=== PATIENT | male | born 1970 | race African-American/Black ===

== ENCOUNTER 2018-05-29 17:45 | Emergency (ER) | payer MEDICAID ==
[~2018-05-29] VITALS: Ht 182.9 cm; Wt 181.0 kg
[~2018-05-29 17:45] MED LIST: ATOR10TA PO; FURO-152 PO; LISI2.5T47 PO
[2018-05-29] MEDS ORDERED: CLOP75TA16 PO (17:52)
[2018-05-29] MEDS ORDERED: ASPI-1159 PO (17:52)
[2018-05-29] MEDS ORDERED: COR3 PO (17:52)
[2018-05-29] MEDS ORDERED: SODIUM CHLORIDE 0.9% 1,000 ML IV ONE (19:06)
[2018-05-29] MEDS ORDERED: BACITRACIN ZINC OINT UDPKT TOP ONE (19:15)
[2018-05-29] MEDS ORDERED: ALBUTEROL (0.083%) 2.5MG/3ML NEB HHN STA (19:18)
[2018-05-29] MEDS ORDERED: IPRATROPIUM BROMIDE (0.02%) 0.5MG/2.5ML NEB HHN STA (19:18)
[2018-05-29] MEDS ORDERED: METHYLPREDNISOLONE SOD SUCC 125 MG/2 ML VIAL IV STA (19:18)
[2018-05-29 19:38] LABS: BASOPHILS % 0.6 % (0.0-2.0); EOSINOPHILS % 0.9 % (0.0-5.0); HEMATOCRIT. 40.2 % (42.0-52.0); HEMOGLOBIN. 13.3 g/dL (14.0-18.0); LYMPHOCYTES % 8.2 % (20.0-50.0); MEAN CORPUSCULAR HEMOGLOBIN 27.6 pg (28.0-32.0); MEAN CORPUSCULAR VOLUME 83.4 fL (80.0-94.0); MEAN PLATELET VOLUME 7.5 fl (7.4-10.4); MONOCYTES % 8.4 % (2.0-8.0); NEUTROPHILS % 81.9 % (40.0-76.0); PLATELET 292 x1000/uL (130-400); RED BLOOD CELL COUNT 4.82 mill/uL (4.7-6.1); RED CELL DISTRIBUTION WIDTH 15.4 % (11.6-14.6)
[2018-05-29 19:42] LABS: CHLORIDE 106 mEq/L (98-107)
[2018-05-29 19:51] LABS: CREATINE KINASE 236 IU/L (39-308)
[2018-05-30] MEDS ORDERED: ONDANSETRON HCL 4MG/2ML VIAL IV PRN (00:15)
[2018-05-30] MEDS ORDERED: ACETAMINOPHEN 325MG TABLET PO PRN (00:15)
[2018-05-30] MEDS ORDERED: CLONIDINE 0.1MG TABLET PO PRN (00:15)
[2018-05-30] MEDS ORDERED: LORAZEPAM 2MG/ML CPJ IV PRN (00:15)
[2018-05-30] MEDS ORDERED: LEVOFLOXACIN 500MG PREMIX 100 ML IV SCH (00:15)
[2018-05-30] MEDS ORDERED: DEXT 5%/0.45% NACL 1000ML 1,000 ML IV SCH (00:15)
[2018-05-30 00:38] VITALS: BP 169/102
[2018-05-30] MEDS ORDERED: METHYLPREDNISOLONE SOD SUCC 125 MG/2 ML VIAL IV SCH (06:00)
== END 2018-05-30 00:35 | disposition left against medical advice (07) ==
LOC: ER 17:45 → ENRESERV 23:45 → ER 05-30 00:35 → CANBEDREQ 05-30 04:30
DX: R55 Syncope and collapse (principal); I11.0 Hypertensive heart disease with heart failure; I50.9 Heart failure, unspecified; J44.9 Chronic obstructive pulmonary disease, unspecified; E78.00 Pure hypercholesterolemia, unspecified; Z79.82 Long term (current) use of aspirin; Z79.899 Other long term (current) drug therapy
CPT/HCPCS: 36415; 70450; 71045; 73560; 80053; 82550; 84484; 85025; 93005; 94640; 96361; 96374; 99285; J2930; J7030; J7611; Z7610

== ENCOUNTER 2019-01-01 13:04 | Inpatient (IN) | payer MEDICAID ==
[~2019-01-01] VITALS: Ht 182.9 cm; Wt 186.0 kg
[~2019-01-01 13:04] MED LIST changes: +AMLO5TAB88 PO; +ASPI-1159 PO; +CLOP75TA16 PO; +COR6 PO; +FURO-151 PO; -FURO-152 PO; +HYDR-4135 PO; +LISI-604 PO; -LISI2.5T47 PO
[2019-01-01 14:51] LABS: BASOPHILS % 0.5 % (0.0-2.0); EOSINOPHILS % 1.5 % (0.0-5.0); HEMATOCRIT. 42.4 % (42.0-52.0); HEMOGLOBIN. 13.9 g/dL (14.0-18.0); LYMPHOCYTES % 13.2 % (20.0-50.0); MEAN CORPUSCULAR HEMOGLOBIN 27.9 pg (28.0-32.0); MEAN PLATELET VOLUME 7.9 fl (7.4-10.4); MONOCYTES % 9.3 % (2.0-8.0); NEUTROPHILS % 75.5 % (40.0-76.0); PLATELET 302 x1000/uL (130-400); RED BLOOD CELL COUNT 4.99 mill/uL (4.7-6.1); RED CELL DISTRIBUTION WIDTH 14.6 % (11.6-14.6)
[2019-01-01 14:55] LABS: BG BASE EXCESS 2.7 mmol/L (-2.0-2.0); BG BILEVEL POS AIRWAY PRESSURE 15/5; BG CARBOXYHEMOGLOBIN 2.2 % (0.5-1.5); BG DEOXYHEMOGLOBIN 0.8 % (0.0-5.0); BG FRACTION INSPIRED OXYGEN 50; BG HCO3 ACT 30.1 mmol/L (22.0-26.0); BG METHEMOGLOBIN 0.2 % (0.0-1.5); BG OXYGEN SATURATION 99.2 % (92.0-98.5); BG OXYHEMOGLOBIN 96.8 % (94.0-97.0); BG PCO2 58.3 mmHg (35.0-45.0); BG PH 7.331 (7.350-7.450); BG PO2 202.9 mmHg (75.0-100.0); BG SAMPLE SITE RIGHT RADIAL; BG TOTAL HEMOGLOBIN 14.6 g/dL (12.0-18.0); BG VENT MODE MASK - BIPAP
[2019-01-01 14:58] LABS: CHLORIDE 108 mEq/L (98-107)
[2019-01-01 15:00] LABS: PROTHROMBIN TIME 10.4 sec (9.1-11.1)
[2019-01-01] MEDS ORDERED: FUROSEMIDE 40MG/4ML VIAL IVP ONE (15:00)
[2019-01-01] MEDS ORDERED: CLINDAMYCIN 600 MG in DEXTROSE 5% WATER 50 ML IV ONE (15:45)
[2019-01-01] MEDS ORDERED: LIDOCAINE HCL/EPINEPHRINE 1%-EPI 1:100,000 30 ML VIAL INFIL ONE (15:45)
[2019-01-01] MEDS ORDERED: NA PHOS,M-B/NA PHOS,DI-BA ENEMA 118ML PR PRN (16:30)
[2019-01-01] MEDS ORDERED: DIPHENHYDRAMINE 50MG/ML VIAL IV PRN (16:30)
[2019-01-01] MEDS ORDERED: ONDANSETRON HCL 4MG/2ML INJ IV PRN (16:30)
[2019-01-01] MEDS ORDERED: MAGNESIUM/ALUMINUM HYDROXIDE/SIMETHICONE 30ML UDC PO PRN (16:30)
[2019-01-01] MEDS ORDERED: ACETAMINOPHEN 650MG/20.3ML UDC GT PRN (16:30)
[2019-01-01] MEDS ORDERED: ACETAMINOPHEN 325MG TABLET PO PRN (16:30)
[2019-01-01] MEDS ORDERED: DOCUSATE SODIUM 100MG CAPSULE PO PRN (16:30)
[2019-01-01] MEDS ORDERED: ACETAMINOPHEN 650MG SUPP PR PRN (16:30)
[2019-01-01] MEDS ORDERED: LIDOCAINE HCL/EPINEPHRINE 1%-EPI 1:100,000 20 ML VIAL INFIL ONE (16:30)
[2019-01-01] MEDS ORDERED: GUAIFENESIN 200MG/10ML SUGAR FREE UDC PO PRN (16:30)
[2019-01-01] MEDS ORDERED: MORPHINE SULFATE 4 MG/ML CPJ (NOT FOR IM USE) IV ONE (16:45)
[2019-01-01 18:34] VITALS: BP 105/71
[2019-01-01 18:52] VITALS: BP 105/71
[2019-01-01 20:00] VITALS: BP 110/77
[2019-01-01] MEDS: HYDROCODONE/ACETAMINOPHEN 10/325MG TABLET PO PRN (20:22)
[2019-01-01] MEDS: SODIUM CHLORIDE 0.9% INJ 3ML FLUSH IVF SCH (21:36)
[2019-01-01] MEDS: ENOXAPARIN 40MG/0.4ML SYR SUBCUT SCH (21:36)
[2019-01-01] MEDS: HYDROCODONE/ACETAMINOPHEN 5/325MG TABLET PO PRN (21:43)
[2019-01-01 22:00] VITALS: BP 108/70
[2019-01-01 23:41] LABS: CREATINE KINASE 130 IU/L (39-308)
[2019-01-01 23:42] LABS: CREATINE KINASE MB FRACTION 1.8 ng/mL (0.5-3.6)
[2019-01-02] VITALS (12 sets, daily range): BP systolic 95–168; BP diastolic 52–106
[2019-01-02] MEDS: HYDROCODONE/ACETAMINOPHEN 10/325MG TABLET PO PRN ×5 (03:19→22:28)
[2019-01-02] MEDS: SODIUM CHLORIDE 0.9% INJ 3ML FLUSH IVF SCH ×3 (06:17→21:18)
[2019-01-02 07:17] LABS: CHLORIDE 104 mEq/L (98-107)
[2019-01-02 07:19] LABS: BASOPHILS % 0.4 % (0.0-2.0); EOSINOPHILS % 2.2 % (0.0-5.0); HEMATOCRIT. 42.5 % (42.0-52.0); HEMOGLOBIN. 13.8 g/dL (14.0-18.0); MEAN CORPUSCULAR VOLUME 86.1 fL (80.0-94.0); MEAN PLATELET VOLUME 8.2 fl (7.4-10.4); MONOCYTES % 10.7 % (2.0-8.0); NEUTROPHILS % 72.7 % (40.0-76.0); PLATELET 305 x1000/uL (130-400); RED BLOOD CELL COUNT 4.93 mill/uL (4.7-6.1); RED CELL DISTRIBUTION WIDTH 14.5 % (11.6-14.6)
[2019-01-02 07:31] LABS: HDL CHOLESTEROL 37 mg/dL (40-59)
[2019-01-02 07:33] LABS: CREATINE KINASE 109 IU/L (39-308)
[2019-01-02 07:34] LABS: LDL CHOLESTEROL 125 mg/dL (5-100)
[2019-01-02 07:36] LABS: CREATINE KINASE MB FRACTION 1.3 ng/mL (0.5-3.6)
[2019-01-02] MEDS: FUROSEMIDE 40MG/4ML VIAL IV SCH ×2 (08:13→17:53)
[2019-01-02] MEDS: ENOXAPARIN 40MG/0.4ML SYR SUBCUT SCH ×2 (08:13→21:18)
[2019-01-02 10:16] LABS: T4 FREE 0.95 ng/dL (0.76-1.46)
[2019-01-02] MEDS: CLONIDINE 0.1MG TABLET PO PRN (14:24)
[2019-01-02] MEDS: IPRATROPIUM/ALBUTEROL 0.5-3(2.5)MG/3ML NEB INH PRN (19:47)
[2019-01-02 20:48] LABS: CREATINE KINASE 103 IU/L (39-308)
[2019-01-02 20:49] LABS: CREATINE KINASE MB FRACTION 1.2 ng/mL (0.5-3.6)
[2019-01-03] VITALS (11 sets, daily range): BP systolic 101–160; BP diastolic 56–103
[2019-01-03] MEDS: IPRATROPIUM/ALBUTEROL 0.5-3(2.5)MG/3ML NEB INH PRN ×3 (00:32→20:26)
[2019-01-03] MEDS: HYDROCODONE/ACETAMINOPHEN 10/325MG TABLET PO PRN ×5 (05:51→23:50)
[2019-01-03] MEDS: SODIUM CHLORIDE 0.9% INJ 3ML FLUSH IVF SCH ×3 (05:54→22:49)
[2019-01-03] MEDS: FUROSEMIDE 40MG/4ML VIAL IV SCH ×2 (06:53→17:51)
[2019-01-03 07:56] LABS: CREATINE KINASE 77 IU/L (39-308); CREATINE KINASE MB FRACTION < 1.0 ng/mL (0.5-3.6)
[2019-01-03] MEDS: ENOXAPARIN 40MG/0.4ML SYR SUBCUT SCH ×2 (10:00→22:48)
[2019-01-03] MEDS: CLONIDINE 0.1MG TABLET PO PRN (10:01)
[2019-01-03 21:01] LABS: BASOPHILS % 0.7 % (0.0-2.0); CHLORIDE 97 mEq/L (98-107); EOSINOPHILS % 2.1 % (0.0-5.0); HEMATOCRIT. 42.2 % (42.0-52.0); HEMOGLOBIN. 13.7 g/dL (14.0-18.0); LYMPHOCYTES % 16.9 % (20.0-50.0); MEAN CORPUSCULAR HEMOGLOBIN 27.9 pg (28.0-32.0); MEAN CORPUSCULAR VOLUME 86.1 fL (80.0-94.0); MEAN PLATELET VOLUME 8.1 fl (7.4-10.4); MONOCYTES % 9.2 % (2.0-8.0); NEUTROPHILS % 71.1 % (40.0-76.0); PLATELET 287 x1000/uL (130-400); RED CELL DISTRIBUTION WIDTH 14.2 % (11.6-14.6)
[2019-01-04] VITALS: BP 150/99
[2019-01-04 04:00] VITALS: BP 139/83
[2019-01-04] MEDS: SODIUM CHLORIDE 0.9% INJ 3ML FLUSH IVF SCH ×3 (06:56→22:26)
[2019-01-04] MEDS: ENOXAPARIN 40MG/0.4ML SYR SUBCUT SCH ×2 (09:04→20:12)
[2019-01-04] MEDS: HYDROCODONE/ACETAMINOPHEN 5/325MG TABLET PO PRN ×2 (09:05→13:27)
[2019-01-04] MEDS: FUROSEMIDE 40MG/4ML VIAL IV SCH ×2 (09:05→17:40)
[2019-01-04] MEDS: CLOPIDOGREL 75MG TABLET PO SCH (09:07)
[2019-01-04 10:01] LABS: BASOPHILS % 0.3 % (0.0-2.0); EOSINOPHILS % 2.4 % (0.0-5.0); HEMATOCRIT. 41.6 % (42.0-52.0); HEMOGLOBIN. 13.6 g/dL (14.0-18.0); LYMPHOCYTES % 16.2 % (20.0-50.0); MEAN CORPUSCULAR HEMOGLOBIN 28.3 pg (28.0-32.0); MEAN CORPUSCULAR VOLUME 86.6 fL (80.0-94.0); MEAN PLATELET VOLUME 7.7 fl (7.4-10.4); NEUTROPHILS % 72.1 % (40.0-76.0); PLATELET 272 x1000/uL (130-400); RED BLOOD CELL COUNT 4.81 mill/uL (4.7-6.1); RED CELL DISTRIBUTION WIDTH 14.1 % (11.6-14.6)
[2019-01-04 10:05] LABS: CHLORIDE 99 mEq/L (98-107)
[2019-01-04 12:00] VITALS: BP 146/88
[2019-01-04 16:00] VITALS: BP 127/96
[2019-01-04] MEDS ORDERED: CEPHALEXIN 250 MG/5 ML 100ML PO SCH (19:00)
[2019-01-04 20:00] VITALS: BP 144/88
[2019-01-04] MEDS: CEPHALEXIN 250MG CAPSULE PO SCH (20:07)
[2019-01-04] MEDS: HYDROCODONE/ACETAMINOPHEN 10/325MG TABLET PO PRN (20:12)
[2019-01-05] VITALS: BP 132/89
[2019-01-05 04:00] VITALS: BP 132/89
[2019-01-05] MEDS: SODIUM CHLORIDE 0.9% INJ 3ML FLUSH IVF SCH (06:12)
[2019-01-05] MEDS: FUROSEMIDE 40MG/4ML VIAL IV SCH (06:23)
[2019-01-05] MEDS: HYDROCODONE/ACETAMINOPHEN 5/325MG TABLET PO PRN (06:28)
[2019-01-05 08:00] VITALS: BP 115/80
[2019-01-05] MEDS: CEPHALEXIN 250MG CAPSULE PO SCH (09:03)
[2019-01-05] MEDS: CLOPIDOGREL 75MG TABLET PO SCH (09:03)
[2019-01-05] MEDS: HYDROCODONE/ACETAMINOPHEN 10/325MG TABLET PO PRN (09:04)
[2019-01-05] MEDS: ENOXAPARIN 40MG/0.4ML SYR SUBCUT SCH (09:04)
[2019-01-05] MEDS ORDERED: FURO-151 PO (11:58)
[2019-01-05 12:00] VITALS: BP 124/78
[2019-01-05 12:48] VITALS: BP 124/78
== END 2019-01-05 16:32 | disposition home or self-care (01) | DRG 133 ==
LOC: ER 13:04 → 5EST 15:55 → EDBEDREQSVC 16:06 → EDBEDREQ 16:06 → ENRESERV 16:39 → CANRESERV 16:39 → EDBEDREQSVC 16:48 → ENRESERV 16:53 → EDBEDREQSVC 16:55 → 6EST 01-03 21:15
PROVIDERS: ADMIT Family Medicine; ATTEND Family Medicine
PROC: 0H96XZZ Drainage of Back Skin, External Approach (ICD-10-PCS; principal; 2019-01-01)
PROC: 5A09357 Assistance with Respiratory Ventilation, Less than 24 Consecutive Hours, Continuous Positive Airway Pressure (ICD-10-PCS; 2019-01-01)
PROC: 5A09357 Assistance with Respiratory Ventilation, Less than 24 Consecutive Hours, Continuous Positive Airway Pressure (ICD-10-PCS; 2019-01-02)
PROC: 5A09357 Assistance with Respiratory Ventilation, Less than 24 Consecutive Hours, Continuous Positive Airway Pressure (ICD-10-PCS; 2019-01-04)
DX: J96.21 Acute and chronic respiratory failure with hypoxia (principal); I50.33 Acute on chronic diastolic (congestive) heart failure; E44.1 Mild protein-calorie malnutrition; E66.01 Morbid (severe) obesity due to excess calories; I11.0 Hypertensive heart disease with heart failure; E78.5 Hyperlipidemia, unspecified; I25.10 Atherosclerotic heart disease of native coronary artery without angina pectoris; L02.212 Cutaneous abscess of back [any part, except buttock and flank]; F17.200 Nicotine dependence, unspecified, uncomplicated; G47.33 Obstructive sleep apnea (adult) (pediatric); J44.9 Chronic obstructive pulmonary disease, unspecified; Z82.49 Family history of ischemic heart disease and other diseases of the circulatory system; Z83.3 Family history of diabetes mellitus; Z95.5 Presence of coronary angioplasty implant and graft; Z68.43 Body mass index [BMI] 50.0-59.9, adult; Z79.899 Other long term (current) drug therapy; Z79.82 Long term (current) use of aspirin
CPT/HCPCS: 36415; 36600; 71045; 78580; 80061; 82375; 82550; 82553; 82805; 83036; 83880; 84134; 84439; 84443; 84484; 85379; 93005; 93306; 93970; 94660; 96365; 97162; 99285; J1200; J1650; J1940; J2270; J2405; J3490; J7060; J7620

== ENCOUNTER 2019-03-23 14:04 | Inpatient (IN) | payer MEDICAID ==
[~2019-03-23] VITALS: Ht 182.9 cm; Wt 181.9 kg
[~2019-03-23 14:04] MED LIST changes: -AMLO5TAB88 PO
[2019-03-23] MEDS ORDERED: METHYLPREDNISOLONE SOD SUCC 125 MG/2 ML VIAL IV STA (14:40)
[2019-03-23] MEDS ORDERED: IPRATROPIUM BROMIDE (0.02%) 0.5MG/2.5ML NEB HHN STA (14:40)
[2019-03-23] MEDS ORDERED: DOXYCYCLINE HYCLATE 100MG CAPSULE PO ONE (14:45)
[2019-03-23] MEDS ORDERED: ALBUTEROL (0.083%) 2.5MG/3ML NEB HHN SCH (15:00)
[2019-03-23 15:16] LABS: HEMATOCRIT. 40.7 % (42.0-52.0); HEMOGLOBIN. 13.4 g/dL (14.0-18.0); MEAN CORPUSCULAR HEMOGLOBIN 27.9 pg (28.0-32.0); MEAN CORPUSCULAR VOLUME 84.6 fL (80.0-94.0); MEAN PLATELET VOLUME 7.7 fl (7.4-10.4); PLATELET 294 x1000/uL (130-400); RED BLOOD CELL COUNT 4.81 mill/uL (4.7-6.1); RED CELL DISTRIBUTION WIDTH 14.7 % (11.6-14.6)
[2019-03-23 15:20] LABS: CHLORIDE 106 mEq/L (98-107)
[2019-03-23 15:43] LABS: BG BASE EXCESS 3.6 mmol/L (-2.0-2.0); BG CARBOXYHEMOGLOBIN 3.7 % (0.5-1.5); BG DEOXYHEMOGLOBIN 5.6 % (0.0-5.0); BG FRACTION INSPIRED OXYGEN 24; BG HCO3 ACT 30.9 mmol/L (22.0-26.0); BG METHEMOGLOBIN 0.2 % (0.0-1.5); BG OXYGEN SATURATION 94.2 % (92.0-98.5); BG OXYHEMOGLOBIN 90.5 % (94.0-97.0); BG PCO2 58.4 mmHg (35.0-45.0); BG PH 7.342 (7.350-7.450); BG PO2 72.7 mmHg (75.0-100.0); BG SAMPLE SITE LEFT RADIAL; BG TOTAL HEMOGLOBIN 14.4 g/dL (12.0-18.0); BG VENT MODE NASAL CANNULA
[2019-03-23 15:44] LABS: PLATELET ESTIMATE NORMAL
[2019-03-23] MEDS ORDERED: FUROSEMIDE 100MG/10ML VIAL IVP ONE (16:30)
[2019-03-23] MEDS ORDERED: CEFTRIAXONE 2 G PREMIX 50 ML IV SCH (16:30)
[2019-03-23] MEDS ORDERED: SODIUM CHLORIDE 0.9% 500 ML IV ONE (17:30)
[2019-03-23] MEDS ORDERED: IPRATROPIUM/ALBUTEROL 0.5-3(2.5)MG/3ML NEB HHN PRN (17:30)
[2019-03-23 18:17] LABS: COLOR URINE YELLOW (YELLOW); KETONES URINE NEGATIVE (NEGATIVE); LEUKOCYTE ESTERASE URINE NEGATIVE (NEGATIVE); NITRITE URINE NEGATIVE (NEGATIVE); OCCULT BLOOD URINE NEGATIVE (NEGATIVE); PROTEIN URINE NEGATIVE (NEGATIVE); SPECIFIC GRAVITY URINE 1.012 (1.005-1.030)
[2019-03-23 18:18] LABS: CLARITY URINE SLIGHTLY HAZY (CLEAR)
[2019-03-23 18:35] LABS: *AMPHETAMINES SCREEN URINE NEGATIVE (NEGATIVE); *BARBITURATES SCREEN URINE NEGATIVE (NEGATIVE); *BENZODIAZEPINES SCREEN URINE NEGATIVE (NEGATIVE); *COCAINE SCREEN URINE NEGATIVE (NEGATIVE); METHADONE URINE SCREEN NEGATIVE (NEGATIVE)
[2019-03-23 18:36] LABS: CANNABINOID URINE SCREEN NEGATIVE (NEGATIVE); OPIATES URINE SCREEN NEGATIVE (NEGATIVE); PHENCYCLIDINE URINE SCREEN PRESUMTIVE POSITIVE (NEGATIVE)
[2019-03-23] MEDS: IPRATROPIUM/ALBUTEROL 0.5-3(2.5)MG/3ML NEB HHN SCH (19:40)
[2019-03-23] MEDS ORDERED: ACETAMINOPHEN 325MG TABLET PO PRN (20:15)
[2019-03-23] MEDS ORDERED: ONDANSETRON HCL 4MG/2ML INJ IV PRN (20:15)
[2019-03-23] MEDS ORDERED: DOCUSATE SODIUM 100MG CAPSULE PO PRN (20:15)
[2019-03-23] MEDS ORDERED: DIPHENHYDRAMINE 50MG/ML VIAL IV PRN (20:15)
[2019-03-23 21:45] VITALS: BP 102/73
[2019-03-23] MEDS: OMEPRAZOLE 20MG CAPSULE EXTENDED RELEASE PO SCH (23:10)
[2019-03-24] MEDS: IPRATROPIUM/ALBUTEROL 0.5-3(2.5)MG/3ML NEB HHN SCH ×4 (00:59→21:01)
[2019-03-24 04:00] VITALS: BP 129/86
[2019-03-24] MEDS: HYDROCODONE/ACETAMINOPHEN 5/325MG TABLET PO PRN ×4 (04:55→21:16)
[2019-03-24 06:44] LABS: CHLORIDE 107 mEq/L (98-107)
[2019-03-24 06:48] LABS: HEMATOCRIT. 42.4 % (42.0-52.0); HEMOGLOBIN. 13.9 g/dL (14.0-18.0); MEAN CORPUSCULAR VOLUME 85.5 fL (80.0-94.0); MEAN PLATELET VOLUME 8.4 fl (7.4-10.4); PLATELET 286 x1000/uL (130-400); RED BLOOD CELL COUNT 4.95 mill/uL (4.7-6.1); RED CELL DISTRIBUTION WIDTH 15.3 % (11.6-14.6)
[2019-03-24 06:52] LABS: PHOSPHORUS 2.3 mg/dL (2.5-4.9)
[2019-03-24 06:53] LABS: LDL CHOLESTEROL 123 mg/dL (5-100)
[2019-03-24 06:54] LABS: HDL CHOLESTEROL 40 mg/dL (40-59)
[2019-03-24] MEDS: ENOXAPARIN 40MG/0.4ML SYR SUBCUT SCH ×2 (10:17→21:11)
[2019-03-24] MEDS: OMEPRAZOLE 20MG CAPSULE EXTENDED RELEASE PO SCH (10:18)
[2019-03-24] MEDS: ASPIRIN 81MG EC TABLET PO SCH (15:37)
[2019-03-24] MEDS: HYDRALAZINE HCL 25MG TABLET PO SCH ×2 (15:38→21:10)
[2019-03-24] MEDS: FUROSEMIDE 40MG/4ML VIAL IVP SCH ×2 (15:39→19:27)
[2019-03-24] MEDS ORDERED: CEFTRIAXONE 2 G in DEXTROSE 5% WATER 50 ML IV SCH (16:00)
[2019-03-24] MEDS ORDERED: CEFTRIAXONE 2 G PREMIX 50 ML IV SCH ×2 (16:00→17:00)
[2019-03-24 17:57] LABS: PLATELET ESTIMATE NORMAL
[2019-03-24] MEDS: CLOPIDOGREL 75MG TABLET PO SCH (18:39)
[2019-03-24 20:00] VITALS: BP 124/79
[2019-03-24] MEDS ORDERED: ATORVASTATIN CALCIUM 20MG TABLET PO SCH (21:00)
[2019-03-24] MEDS ORDERED: FUROSEMIDE 20MG TABLET PO SCH (21:00)
[2019-03-24] MEDS: LISINOPRIL 10MG TABLET PO SCH (21:10)
[2019-03-25] VITALS: BP 128/86
[2019-03-25] MEDS: IPRATROPIUM/ALBUTEROL 0.5-3(2.5)MG/3ML NEB HHN SCH ×3 (02:31→14:26)
[2019-03-25 04:00] VITALS: BP 102/78
[2019-03-25 06:14] LABS: BASOPHILS % 0.5 % (0.0-2.0); EOSINOPHILS % 0.3 % (0.0-5.0); HEMATOCRIT. 40.4 % (42.0-52.0); HEMOGLOBIN. 13.2 g/dL (14.0-18.0); LYMPHOCYTES % 14.5 % (20.0-50.0); MEAN CORPUSCULAR VOLUME 85.5 fL (80.0-94.0); MEAN PLATELET VOLUME 8.1 fl (7.4-10.4); MONOCYTES % 7.5 % (2.0-8.0); NEUTROPHILS % 77.2 % (40.0-76.0); PLATELET 286 x1000/uL (130-400); RED BLOOD CELL COUNT 4.73 mill/uL (4.7-6.1); RED CELL DISTRIBUTION WIDTH 15.2 % (11.6-14.6)
[2019-03-25 06:20] LABS: CHLORIDE 100 mEq/L (98-107)
[2019-03-25] MEDS: FUROSEMIDE 40MG/4ML VIAL IVP SCH (06:42)
[2019-03-25] MEDS: HYDRALAZINE HCL 25MG TABLET PO SCH ×2 (06:43→14:10)
[2019-03-25 08:00] VITALS: BP 129/88
[2019-03-25] MEDS: OMEPRAZOLE 20MG CAPSULE EXTENDED RELEASE PO SCH (09:32)
[2019-03-25] MEDS: LISINOPRIL 10MG TABLET PO SCH (09:32)
[2019-03-25] MEDS: CLOPIDOGREL 75MG TABLET PO SCH (09:32)
[2019-03-25] MEDS: ASPIRIN 81MG EC TABLET PO SCH (09:32)
[2019-03-25] MEDS: ENOXAPARIN 40MG/0.4ML SYR SUBCUT SCH (09:33)
[2019-03-25 12:00] VITALS: BP 126/71
[2019-03-25] MEDS ORDERED: POTASSIUM CHLORIDE 20MEQ TABLET SR PO NR (13:00)
[2019-03-25] MEDS: HYDROCODONE/ACETAMINOPHEN 5/325MG TABLET PO PRN (14:14)
[2019-03-25] MEDS: BUDESONIDE 0.5MG/2ML NEB HHN SCH ×2 (14:25→14:30)
[2019-03-25 16:00] VITALS: BP 130/84
[2019-03-25 16:36] VITALS: BP 130/84
== END 2019-03-25 17:05 | disposition home or self-care (01) | DRG 137 ==
LOC: ER 15:08 → 7WST 16:31 → EDBEDREQTM 16:32 → EDBEDREQ 16:32 → ENRESERV 20:33
PROVIDERS: ADMIT Family Medicine Adult Medicine; ATTEND Family Medicine Adult Medicine
PROC: 5A09357 Assistance with Respiratory Ventilation, Less than 24 Consecutive Hours, Continuous Positive Airway Pressure (ICD-10-PCS; principal; 2019-03-24)
PROC: 5A09357 Assistance with Respiratory Ventilation, Less than 24 Consecutive Hours, Continuous Positive Airway Pressure (ICD-10-PCS; 2019-03-25)
DX: J69.0 Pneumonitis due to inhalation of food and vomit (principal); J96.00 Acute respiratory failure, unspecified whether with hypoxia or hypercapnia; G92 Toxic encephalopathy; I47.2 Ventricular tachycardia; I11.0 Hypertensive heart disease with heart failure; I42.9 Cardiomyopathy, unspecified; R65.10 Systemic inflammatory response syndrome (SIRS) of non-infectious origin without acute organ dysfunction; I50.42 Chronic combined systolic (congestive) and diastolic (congestive) heart failure; E66.2 Morbid (severe) obesity with alveolar hypoventilation; J68.0 Bronchitis and pneumonitis due to chemicals, gases, fumes and vapors; E78.5 Hyperlipidemia, unspecified; F16.90 Hallucinogen use, unspecified, uncomplicated; G47.33 Obstructive sleep apnea (adult) (pediatric); I25.10 Atherosclerotic heart disease of native coronary artery without angina pectoris; M94.0 Chondrocostal junction syndrome [Tietze]; T38.0X5A Adverse effect of glucocorticoids and synthetic analogues, initial encounter; F17.210 Nicotine dependence, cigarettes, uncomplicated; F19.10 Other psychoactive substance abuse, uncomplicated; I25.2 Old myocardial infarction; Z82.49 Family history of ischemic heart disease and other diseases of the circulatory system; Z91.19 Patient's noncompliance with other medical treatment and regimen; Z95.5 Presence of coronary angioplasty implant and graft; Y92.89 Other specified places as the place of occurrence of the external cause
CPT/HCPCS: 36415; 36600; 71045; 80048; 80061; 80305; 82375; 82805; 83605; 83735; 83880; 84100; 84443; 84484; 87070; 93005; 93970; 94640; 94660; 96365; 96375; 99291; J0696; J1650; J1940; J2930; J7040; J7060; J7620; J7626

== ENCOUNTER 2021-01-22 11:32 | Inpatient (IN) | payer MEDICAID ==
[~2021-01-22] VITALS: Ht 182.9 cm; Wt 162.8 kg
[~2021-01-22 11:32] MED LIST changes: -ASPI-1159 PO; +ASPI-1497 PO; +CLOP-31 PO; -CLOP75TA16 PO; -LISI-604 PO; +LISI20TA31 PO
[2021-01-22] MEDS ORDERED: PIPERACILLIN/TAZOBACTAM 3.375GM/50ML PREMIX IV SCH (12:15)
[2021-01-22] MEDS ORDERED: OXYCODONE HCL/ACETAMINOPHEN 5/325MG TABLET PO ONE (12:15)
[2021-01-22] MEDS ORDERED: OXYCODONE HCL/ACETAMINOPHEN 5/325MG TABLET PO SCH (12:20)
[2021-01-22 12:46] LABS: BASOPHILS % 0.7 % (0.0-2.0); EOSINOPHILS % 1.3 % (0.0-5.0); HEMATOCRIT. 46.8 % (42.0-52.0); HEMOGLOBIN. 15.4 g/dL (14.0-18.0); LYMPHOCYTES % 11.9 % (20.0-50.0); MEAN CORPUSCULAR HEMOGLOBIN 27.6 pg (28.0-32.0); MEAN CORPUSCULAR VOLUME 83.8 fL (80.0-94.0); MEAN PLATELET VOLUME 7.3 fl (7.4-10.4); MONOCYTES % 7.8 % (2.0-8.0); NEUTROPHILS % 78.3 % (40.0-76.0); PLATELET 444 x1000/uL (130-400); RED BLOOD CELL COUNT 5.58 mill/uL (4.7-6.1); RED CELL DISTRIBUTION WIDTH 15.5 % (11.6-14.6)
[2021-01-22 12:53] LABS: CHLORIDE 102 mEq/L (98-107)
[2021-01-22 12:58] LABS: ETHANOL BLOOD < 10 mg/dL
[2021-01-22] MEDS ORDERED: VANCOMYCIN 2,000 MG in DEXT 5% WATER 500 ML IV SCH (13:00)
[2021-01-22 16:00] VITALS: BP 109/71
[2021-01-22 17:12] VITALS: BP 126/75
[2021-01-22] MEDS ORDERED: DIPHENHYDRAMINE 50MG/ML VIAL IV PRN (17:45)
[2021-01-22] MEDS ORDERED: MAGNESIUM/ALUMINUM HYDROXIDE/SIMETHICONE 30ML UDC PO PRN (17:45)
[2021-01-22] MEDS ORDERED: CLONIDINE 0.1MG TABLET PO PRN (17:45)
[2021-01-22] MEDS ORDERED: ONDANSETRON HCL 4MG/2ML INJ IV PRN (17:45)
[2021-01-22] MEDS ORDERED: GUAIFENESIN 200MG/10ML SUGAR FREE UDC PO PRN (17:45)
[2021-01-22] MEDS ORDERED: ACETAMINOPHEN 325MG TABLET PO PRN (17:45)
[2021-01-22] MEDS: BUMETANIDE 1MG/4ML VIAL IV SCH (18:00)
[2021-01-22] MEDS ORDERED: IPRATROPIUM/ALBUTEROL 0.5-3(2.5)MG/3ML NEB HHN PRN (18:00)
[2021-01-22 20:00] VITALS: BP 154/101
[2021-01-22] MEDS: ENOXAPARIN 40MG/0.4ML SYR SUBCUT SCH (21:00)
[2021-01-22] MEDS ORDERED: ZOLPIDEM TARTRATE 5MG TABLET PO PRN (21:00)
[2021-01-22] MEDS: CARVEDILOL 12.5MG TABLET PO SCH (21:24)
[2021-01-22] MEDS: ATORVASTATIN CALCIUM 40MG TABLET PO SCH (21:25)
[2021-01-22] MEDS: CEFAZOLIN 2000MG in DEXTROSE 5% WATER 100ML IV SCH (21:26)
[2021-01-22] MEDS: SODIUM CHLORIDE 0.9% INJ 3ML FLUSH IVF SCH (21:30)
[2021-01-22] MEDS: OXYCODONE HCL/ACETAMINOPHEN 5/325MG TABLET PO PRN (21:46)
[2021-01-22] MEDS ORDERED: CEFAZOLIN SODIUM 1000MG/VIAL IV SCH (22:00)
[2021-01-22] MEDS ORDERED: VANCOMYCIN 1 G PREMIX 200 ML IV SCH (23:00)
[2021-01-23] VITALS: BP 106/68
[2021-01-23] MEDS: CEFAZOLIN 2000MG in DEXTROSE 5% WATER 100ML IV SCH ×3 (03:51→20:32)
[2021-01-23 04:00] VITALS: BP 116/70
[2021-01-23] MEDS: BUMETANIDE 1MG/4ML VIAL IV SCH ×2 (05:32→17:22)
[2021-01-23] MEDS: OXYCODONE HCL/ACETAMINOPHEN 5/325MG TABLET PO PRN ×3 (05:34→22:25)
[2021-01-23] MEDS: SODIUM CHLORIDE 0.9% INJ 3ML FLUSH IVF SCH ×3 (05:46→21:11)
[2021-01-23 07:01] LABS: BASOPHILS % 0.8 % (0.0-2.0); EOSINOPHILS % 2.4 % (0.0-5.0); HEMATOCRIT. 40.7 % (42.0-52.0); LYMPHOCYTES % 14.2 % (20.0-50.0); MEAN CORPUSCULAR HEMOGLOBIN 26.8 pg (28.0-32.0); MEAN CORPUSCULAR VOLUME 84.1 fL (80.0-94.0); MEAN PLATELET VOLUME 7.4 fl (7.4-10.4); MONOCYTES % 10.5 % (2.0-8.0); NEUTROPHILS % 72.1 % (40.0-76.0); PLATELET 411 x1000/uL (130-400); RED BLOOD CELL COUNT 4.84 mill/uL (4.7-6.1); RED CELL DISTRIBUTION WIDTH 15.6 % (11.6-14.6)
[2021-01-23 07:10] LABS: CHLORIDE 104 mEq/L (98-107)
[2021-01-23 07:15] LABS: PHOSPHORUS 3.8 mg/dL (2.5-4.9)
[2021-01-23 08:30] VITALS: BP 107/77
[2021-01-23] MEDS: DOCUSATE SODIUM 100MG CAPSULE PO SCH ×2 (09:00→17:00)
[2021-01-23] MEDS: METOLAZONE 10MG TABLET PO SCH (09:45)
[2021-01-23] MEDS: POTASSIUM CHLORIDE 20MEQ TABLET SR PO SCH (09:45)
[2021-01-23] MEDS: CARVEDILOL 12.5MG TABLET PO SCH ×2 (09:46→21:11)
[2021-01-23] MEDS: ENOXAPARIN 40MG/0.4ML SYR SUBCUT SCH ×2 (09:51→21:10)
[2021-01-23] MEDS ORDERED: LIDOCAINE HCL 2% JELLY 5ML TOP NR (12:00)
[2021-01-23] MEDS ORDERED: LIDOCAINE HCL 1% 20ML VIAL (Pyxis) INJ INFIL NR (12:00)
[2021-01-23 20:00] VITALS: BP 118/58
[2021-01-23] MEDS: ATORVASTATIN CALCIUM 40MG TABLET PO SCH (21:10)
[2021-01-24] VITALS: BP 118/81
[2021-01-24 04:00] VITALS: BP 132/73
[2021-01-24] MEDS: CEFAZOLIN 2000MG in DEXTROSE 5% WATER 100ML IV SCH ×3 (04:16→19:53)
[2021-01-24] MEDS: SODIUM CHLORIDE 0.9% INJ 3ML FLUSH IVF SCH ×3 (06:09→20:49)
[2021-01-24] MEDS: BUMETANIDE 1MG/4ML VIAL IV SCH ×2 (06:09→17:42)
[2021-01-24] MEDS: OXYCODONE HCL/ACETAMINOPHEN 5/325MG TABLET PO PRN ×2 (06:16→13:05)
[2021-01-24 08:02] VITALS: BP 105/61
[2021-01-24] MEDS: METOLAZONE 10MG TABLET PO SCH (08:23)
[2021-01-24] MEDS: POTASSIUM CHLORIDE 20MEQ TABLET SR PO SCH (08:23)
[2021-01-24] MEDS: CARVEDILOL 12.5MG TABLET PO SCH ×2 (08:25→20:48)
[2021-01-24] MEDS: DOCUSATE SODIUM 100MG CAPSULE PO SCH ×2 (08:25→17:00)
[2021-01-24] MEDS: ENOXAPARIN 40MG/0.4ML SYR SUBCUT SCH ×2 (08:25→20:47)
[2021-01-24 12:30] VITALS: BP 105/74
[2021-01-24 16:20] VITALS: BP 106/57
[2021-01-24 20:00] VITALS: BP 95/60
[2021-01-24] MEDS: ATORVASTATIN CALCIUM 40MG TABLET PO SCH (20:47)
[2021-01-25] VITALS (7 sets, daily range): BP systolic 93–117; BP diastolic 41–66
[2021-01-25] MEDS: CEFAZOLIN 2000MG in DEXTROSE 5% WATER 100ML IV SCH ×3 (04:22→20:51)
[2021-01-25] MEDS: SODIUM CHLORIDE 0.9% INJ 3ML FLUSH IVF SCH ×2 (06:19→13:53)
[2021-01-25] MEDS: BUMETANIDE 1MG/4ML VIAL IV SCH ×2 (06:19→17:02)
[2021-01-25] MEDS: CARVEDILOL 12.5MG TABLET PO SCH ×2 (08:15→20:52)
[2021-01-25] MEDS: DOCUSATE SODIUM 100MG CAPSULE PO SCH ×2 (08:15→16:31)
[2021-01-25] MEDS: ENOXAPARIN 40MG/0.4ML SYR SUBCUT SCH ×2 (08:16→20:51)
[2021-01-25] MEDS: METOLAZONE 10MG TABLET PO SCH (08:16)
[2021-01-25] MEDS: POTASSIUM CHLORIDE 20MEQ TABLET SR PO SCH (08:33)
[2021-01-25] MEDS: OXYCODONE HCL/ACETAMINOPHEN 5/325MG TABLET PO PRN ×2 (08:41→15:36)
[2021-01-25] MEDS: ATORVASTATIN CALCIUM 40MG TABLET PO SCH (20:51)
[2021-01-26] MEDS: CEFAZOLIN 2000MG in DEXTROSE 5% WATER 100ML IV SCH ×3 (04:23→21:41)
[2021-01-26] MEDS: SODIUM CHLORIDE 0.9% INJ 3ML FLUSH IVF SCH ×4 (04:23→21:09)
[2021-01-26] MEDS: BUMETANIDE 1MG/4ML VIAL IV SCH ×2 (05:35→18:57)
[2021-01-26 05:36] VITALS: BP 111/61
[2021-01-26 08:00] VITALS: BP 111/70
[2021-01-26] MEDS: SODIUM HYPOCHLORITE 0.125% 473ML SOLUTION TOP SCH (09:00)
[2021-01-26] MEDS: ENOXAPARIN 40MG/0.4ML SYR SUBCUT SCH ×2 (09:13→21:08)
[2021-01-26] MEDS: CARVEDILOL 12.5MG TABLET PO SCH ×2 (09:14→21:00)
[2021-01-26] MEDS: OXYCODONE HCL/ACETAMINOPHEN 5/325MG TABLET PO PRN (09:15)
[2021-01-26] MEDS: POTASSIUM CHLORIDE 20MEQ TABLET SR PO SCH (09:16)
[2021-01-26] MEDS: DOCUSATE SODIUM 100MG CAPSULE PO SCH ×2 (09:16→18:57)
[2021-01-26] MEDS: METOLAZONE 10MG TABLET PO SCH (09:16)
[2021-01-26 12:00] VITALS: BP 95/54
[2021-01-26 16:00] VITALS: BP 100/56
[2021-01-26 20:00] VITALS: BP 102/77
[2021-01-26] MEDS: ATORVASTATIN CALCIUM 40MG TABLET PO SCH (21:08)
[2021-01-27] VITALS: BP 117/75
[2021-01-27 04:00] VITALS: BP 118/76
[2021-01-27] MEDS: CEFAZOLIN 2000MG in DEXTROSE 5% WATER 100ML IV SCH ×2 (04:09→12:34)
[2021-01-27] MEDS: OXYCODONE HCL/ACETAMINOPHEN 5/325MG TABLET PO PRN ×3 (04:12→21:51)
[2021-01-27] MEDS: BUMETANIDE 1MG/4ML VIAL IV SCH ×2 (05:30→17:23)
[2021-01-27] MEDS: SODIUM CHLORIDE 0.9% INJ 3ML FLUSH IVF SCH ×3 (06:11→21:31)
[2021-01-27 08:00] VITALS: BP 117/59
[2021-01-27] MEDS: SODIUM HYPOCHLORITE 0.125% 473ML SOLUTION TOP SCH (08:45)
[2021-01-27] MEDS: POTASSIUM CHLORIDE 20MEQ TABLET SR PO SCH (08:46)
[2021-01-27] MEDS: ENOXAPARIN 40MG/0.4ML SYR SUBCUT SCH ×2 (08:46→21:29)
[2021-01-27] MEDS: DOCUSATE SODIUM 100MG CAPSULE PO SCH ×2 (08:46→17:22)
[2021-01-27] MEDS: CARVEDILOL 12.5MG TABLET PO SCH ×2 (08:46→21:29)
[2021-01-27] MEDS: METOLAZONE 10MG TABLET PO SCH (08:47)
[2021-01-27] MEDS: ACETAMINOPHEN 325MG TABLET PO PRN ×2 (10:26→15:15)
[2021-01-27 12:00] VITALS: BP 104/72
[2021-01-27 16:00] VITALS: BP 96/58
[2021-01-27 20:00] VITALS: BP 109/75
[2021-01-27] MEDS: ATORVASTATIN CALCIUM 40MG TABLET PO SCH (21:28)
[2021-01-27] MEDS: SULFAMETHOXAZOLE/TRIMETHOPRIM 800/160MG TABLET PO SCH (21:29)
[2021-01-28] VITALS: BP 102/60
[2021-01-28 04:05] VITALS: BP 101/61
[2021-01-28] MEDS: SODIUM CHLORIDE 0.9% INJ 3ML FLUSH IVF SCH ×3 (05:43→21:38)
[2021-01-28] MEDS: BUMETANIDE 1MG/4ML VIAL IV SCH ×2 (05:43→16:25)
[2021-01-28 08:09] VITALS: BP 100/60
[2021-01-28] MEDS: CARVEDILOL 12.5MG TABLET PO SCH ×2 (08:40→21:31)
[2021-01-28] MEDS: LEVOFLOXACIN 500MG TABLET PO SCH (09:30)
[2021-01-28] MEDS: DOCUSATE SODIUM 100MG CAPSULE PO SCH ×2 (09:30→16:25)
[2021-01-28] MEDS: SULFAMETHOXAZOLE/TRIMETHOPRIM 800/160MG TABLET PO SCH ×2 (09:31→21:37)
[2021-01-28] MEDS: POTASSIUM CHLORIDE 20MEQ TABLET SR PO SCH (09:31)
[2021-01-28] MEDS: METOLAZONE 10MG TABLET PO SCH (09:31)
[2021-01-28] MEDS: ENOXAPARIN 40MG/0.4ML SYR SUBCUT SCH ×2 (09:31→21:32)
[2021-01-28] MEDS: SODIUM HYPOCHLORITE 0.125% 473ML SOLUTION TOP SCH (09:32)
[2021-01-28 12:00] VITALS: BP 111/68
[2021-01-28 16:00] VITALS: BP 112/54
[2021-01-28 20:00] VITALS: BP 115/60
[2021-01-28] MEDS: ATORVASTATIN CALCIUM 40MG TABLET PO SCH (21:31)
[2021-01-28] MEDS: MAGNESIUM HYDROXIDE 400MG/5ML 30ML UDC PO PRN (21:37)
[2021-01-29] VITALS: BP 109/78
[2021-01-29] MEDS: OXYCODONE HCL/ACETAMINOPHEN 5/325MG TABLET PO PRN (01:15)
[2021-01-29 04:00] VITALS: BP 117/77
[2021-01-29] MEDS: BUMETANIDE 1MG/4ML VIAL IV SCH (05:47)
[2021-01-29] MEDS: SODIUM CHLORIDE 0.9% INJ 3ML FLUSH IVF SCH ×3 (05:48→20:50)
[2021-01-29 06:06] LABS: BASOPHILS % 0.3 % (0.0-2.0); EOSINOPHILS % 1.6 % (0.0-5.0); HEMATOCRIT. 43.1 % (42.0-52.0); HEMOGLOBIN. 14.4 g/dL (14.0-18.0); LYMPHOCYTES % 15.3 % (20.0-50.0); MEAN CORPUSCULAR HEMOGLOBIN 27.6 pg (28.0-32.0); MEAN CORPUSCULAR VOLUME 82.5 fL (80.0-94.0); MEAN PLATELET VOLUME 7.8 fl (7.4-10.4); MONOCYTES % 11.8 % (2.0-8.0); PLATELET 358 x1000/uL (130-400); RED BLOOD CELL COUNT 5.22 mill/uL (4.7-6.1)
[2021-01-29 07:32] LABS: CHLORIDE 84 mEq/L (98-107)
[2021-01-29 07:40] LABS: PHOSPHORUS 3.2 mg/dL (2.5-4.9)
[2021-01-29 08:23] VITALS: BP 109/74
[2021-01-29] MEDS: POTASSIUM CHLORIDE 20MEQ TABLET SR PO SCH ×4 (08:39→13:07)
[2021-01-29] MEDS: DOCUSATE SODIUM 100MG CAPSULE PO SCH ×2 (08:40→16:10)
[2021-01-29] MEDS: MAGNESIUM HYDROXIDE 400MG/5ML 30ML UDC PO PRN (08:40)
[2021-01-29] MEDS: ENOXAPARIN 40MG/0.4ML SYR SUBCUT SCH ×2 (08:41→20:49)
[2021-01-29] MEDS: CARVEDILOL 12.5MG TABLET PO SCH ×2 (08:44→20:51)
[2021-01-29] MEDS ORDERED: LIDOCAINE HCL 1% 20ML VIAL (Pyxis) INJ INFIL SCH (09:00)
[2021-01-29] MEDS: SODIUM HYPOCHLORITE 0.125% 473ML SOLUTION TOP SCH (10:08)
[2021-01-29] MEDS: METOLAZONE 10MG TABLET PO SCH (10:09)
[2021-01-29] MEDS: SULFAMETHOXAZOLE/TRIMETHOPRIM 800/160MG TABLET PO SCH ×2 (10:09→20:48)
[2021-01-29] MEDS: LEVOFLOXACIN 500MG TABLET PO SCH (11:12)
[2021-01-29 12:09] VITALS: BP 137/82
[2021-01-29] MEDS: ACETAMINOPHEN 325MG TABLET PO PRN ×2 (14:01→20:49)
[2021-01-29 20:00] VITALS: BP 105/68
[2021-01-29] MEDS: ATORVASTATIN CALCIUM 40MG TABLET PO SCH (20:48)
[2021-01-30] VITALS: BP 125/77
[2021-01-30 04:00] VITALS: BP 134/80
[2021-01-30] MEDS: SODIUM CHLORIDE 0.9% INJ 3ML FLUSH IVF SCH ×3 (05:34→21:41)
[2021-01-30 07:19] LABS: CHLORIDE 89 mEq/L (98-107)
[2021-01-30 08:00] VITALS: BP 116/72
[2021-01-30] MEDS: SULFAMETHOXAZOLE/TRIMETHOPRIM 800/160MG TABLET PO SCH ×2 (08:49→21:39)
[2021-01-30] MEDS: POTASSIUM CHLORIDE 20MEQ TABLET SR PO SCH ×3 (08:50→16:39)
[2021-01-30] MEDS: BUMETANIDE 1MG TABLET PO SCH (08:50)
[2021-01-30] MEDS: DOCUSATE SODIUM 100MG CAPSULE PO SCH ×2 (08:50→16:39)
[2021-01-30] MEDS: CARVEDILOL 12.5MG TABLET PO SCH ×2 (08:51→21:40)
[2021-01-30] MEDS: ENOXAPARIN 40MG/0.4ML SYR SUBCUT SCH ×2 (08:51→21:41)
[2021-01-30] MEDS: SODIUM HYPOCHLORITE 0.125% 473ML SOLUTION TOP SCH (08:55)
[2021-01-30] MEDS: LEVOFLOXACIN 500MG TABLET PO SCH (11:00)
[2021-01-30 12:03] VITALS: BP 126/67
[2021-01-30 16:00] VITALS: BP 119/64
[2021-01-30 20:00] VITALS: BP 113/71
[2021-01-30] MEDS: ATORVASTATIN CALCIUM 40MG TABLET PO SCH (21:39)
[2021-01-31] VITALS: BP 110/49
[2021-01-31 04:00] VITALS: BP 116/80
[2021-01-31] MEDS: SODIUM CHLORIDE 0.9% INJ 3ML FLUSH IVF SCH ×3 (06:12→21:56)
[2021-01-31 07:07] LABS: CHLORIDE 91 mEq/L (98-107)
[2021-01-31 08:00] VITALS: BP 108/59
[2021-01-31] MEDS: CARVEDILOL 12.5MG TABLET PO SCH ×2 (09:00→21:00)
[2021-01-31] MEDS: SODIUM HYPOCHLORITE 0.125% 473ML SOLUTION TOP SCH (09:37)
[2021-01-31] MEDS: POTASSIUM CHLORIDE 20MEQ TABLET SR PO SCH ×3 (09:38→17:30)
[2021-01-31] MEDS: ENOXAPARIN 40MG/0.4ML SYR SUBCUT SCH ×2 (09:38→21:56)
[2021-01-31] MEDS: DOCUSATE SODIUM 100MG CAPSULE PO SCH ×2 (09:38→17:30)
[2021-01-31] MEDS: BUMETANIDE 1MG TABLET PO SCH (09:38)
[2021-01-31] MEDS: SULFAMETHOXAZOLE/TRIMETHOPRIM 800/160MG TABLET PO SCH ×2 (09:38→21:55)
[2021-01-31] MEDS: LEVOFLOXACIN 500MG TABLET PO SCH (11:13)
[2021-01-31 12:00] VITALS: BP 125/85
[2021-01-31] MEDS ORDERED: POTASSIUM CHLORIDE 20MEQ TABLET SR PO ONE (13:30)
[2021-01-31 16:00] VITALS: BP 108/59
[2021-01-31 20:00] VITALS: BP 104/68
[2021-01-31] MEDS: ATORVASTATIN CALCIUM 40MG TABLET PO SCH (21:55)
[2021-02-01] VITALS: BP 111/76
[2021-02-01 04:00] VITALS: BP 111/81
[2021-02-01] MEDS: SODIUM CHLORIDE 0.9% INJ 3ML FLUSH IVF SCH (06:51)
[2021-02-01 08:00] VITALS: BP 143/80
[2021-02-01] MEDS: SULFAMETHOXAZOLE/TRIMETHOPRIM 800/160MG TABLET PO SCH (09:00)
[2021-02-01] MEDS: DOCUSATE SODIUM 100MG CAPSULE PO SCH ×2 (09:18→17:00)
[2021-02-01] MEDS: POTASSIUM CHLORIDE 20MEQ TABLET SR PO SCH ×2 (09:20→17:00)
[2021-02-01] MEDS: BUMETANIDE 1MG TABLET PO SCH (09:20)
[2021-02-01] MEDS: CARVEDILOL 12.5MG TABLET PO SCH (09:20)
[2021-02-01] MEDS: ENOXAPARIN 40MG/0.4ML SYR SUBCUT SCH (09:21)
[2021-02-01] MEDS: SODIUM HYPOCHLORITE 0.125% 473ML SOLUTION TOP SCH (09:22)
[2021-02-01] MEDS: LEVOFLOXACIN 500MG TABLET PO SCH (11:56)
[2021-02-01 12:00] VITALS: BP 122/59
[2021-02-01 16:00] VITALS: BP 110/67
[2021-02-01 18:31] VITALS: BP 110/67
[2021-02-09] MEDS ORDERED: BUME1TAB9 PO (18:18)
== END 2021-02-01 19:16 | disposition home health service (06) | DRG 194 ==
LOC: ER 11:44 → 6WST 14:41 → ENRESERV 15:10 → CANRESERV 15:26
PROVIDERS: ADMIT Internal Medicine; ATTEND Internal Medicine
PROC: 0JBP0ZZ Excision of Left Lower Leg Subcutaneous Tissue and Fascia, Open Approach (ICD-10-PCS; principal; 2021-01-23)
PROC: 5A09357 Assistance with Respiratory Ventilation, Less than 24 Consecutive Hours, Continuous Positive Airway Pressure (ICD-10-PCS; 2021-01-23)
PROC: 5A09457 Assistance with Respiratory Ventilation, 24-96 Consecutive Hours, Continuous Positive Airway Pressure (ICD-10-PCS; 2021-01-24)
PROC: 0JBP0ZZ Excision of Left Lower Leg Subcutaneous Tissue and Fascia, Open Approach (ICD-10-PCS; 2021-01-26)
PROC: 5A09357 Assistance with Respiratory Ventilation, Less than 24 Consecutive Hours, Continuous Positive Airway Pressure (ICD-10-PCS; 2021-01-29)
PROC: 5A09357 Assistance with Respiratory Ventilation, Less than 24 Consecutive Hours, Continuous Positive Airway Pressure (ICD-10-PCS; 2021-01-31)
PROC: 5A09357 Assistance with Respiratory Ventilation, Less than 24 Consecutive Hours, Continuous Positive Airway Pressure (ICD-10-PCS; 2021-02-01)
DX: I11.0 Hypertensive heart disease with heart failure (principal); E66.01 Morbid (severe) obesity due to excess calories; I50.43 Acute on chronic combined systolic (congestive) and diastolic (congestive) heart failure; I87.2 Venous insufficiency (chronic) (peripheral); E78.00 Pure hypercholesterolemia, unspecified; E87.6 Hypokalemia; F17.210 Nicotine dependence, cigarettes, uncomplicated; G47.30 Sleep apnea, unspecified; G89.29 Other chronic pain; Z20.822 Contact with and (suspected) exposure to COVID-19; I73.9 Peripheral vascular disease, unspecified; G47.36 Sleep related hypoventilation in conditions classified elsewhere; L30.9 Dermatitis, unspecified; Z60.2 Problems related to living alone; J44.9 Chronic obstructive pulmonary disease, unspecified; L97.929 Non-pressure chronic ulcer of unspecified part of left lower leg with unspecified severity; S81.812A Laceration without foreign body, left lower leg, initial encounter; I25.10 Atherosclerotic heart disease of native coronary artery without angina pectoris; Z79.899 Other long term (current) drug therapy; Z82.49 Family history of ischemic heart disease and other diseases of the circulatory system; Z68.42 Body mass index [BMI] 45.0-49.9, adult; Z79.82 Long term (current) use of aspirin; S81.812D Laceration without foreign body, left lower leg, subsequent encounter; Z71.6 Tobacco abuse counseling; L03.116 Cellulitis of left lower limb
CPT/HCPCS: 36415; 71045; 73590; 80048; 80053; 80320; 83605; 83735; 83880; 84100; 84132; 84484; 85025; 87070; 87075; 87077; 87186; 87426; 93306; 93923; 93970; 94640; 94660; 97110; 97162; 97166; 97530; 97535; 99291; J0690; J1650; J2543; J3370; J3490; J7060; G0480

== ENCOUNTER 2021-02-21 21:22 | Inpatient (IN) | payer MEDICAID ==
[~2021-02-21] VITALS: Ht 182.9 cm; Wt 188.7 kg
[~2021-02-21 21:22] MED LIST changes: +BUME1TAB9 PO
[2021-02-21 22:21] LABS: BASOPHILS % 0.4 % (0.0-2.0); HEMATOCRIT. 41.3 % (42.0-52.0); LYMPHOCYTES % 8.8 % (20.0-50.0); MEAN CORPUSCULAR HEMOGLOBIN 27.2 pg (28.0-32.0); MEAN CORPUSCULAR VOLUME 86.3 fL (80.0-94.0); MEAN PLATELET VOLUME 7.5 fl (7.4-10.4); MONOCYTES % 8.1 % (2.0-8.0); NEUTROPHILS % 81.7 % (40.0-76.0); PLATELET 326 x1000/uL (130-400); RED BLOOD CELL COUNT 4.78 mill/uL (4.7-6.1); RED CELL DISTRIBUTION WIDTH 16.6 % (11.6-14.6)
[2021-02-21 22:30] LABS: CHLORIDE 106 mEq/L (98-107)
[2021-02-21 22:33] LABS: ETHANOL BLOOD < 10 mg/dL
[2021-02-21 23:11] LABS: CLARITY URINE CLEAR (CLEAR); COLOR URINE YELLOW (YELLOW); KETONES URINE NEGATIVE (NEGATIVE); LEUKOCYTE ESTERASE URINE NEGATIVE (NEGATIVE); NITRITE URINE NEGATIVE (NEGATIVE); OCCULT BLOOD URINE NEGATIVE (NEGATIVE); PH URINE 7.5 (4.5-8.0); PROTEIN URINE TRACE (NEGATIVE); SPECIFIC GRAVITY URINE 1.022 (1.005-1.030)
[2021-02-21 23:24] LABS: *AMPHETAMINES SCREEN URINE NEGATIVE (NEGATIVE); *BARBITURATES SCREEN URINE NEGATIVE (NEGATIVE); *BENZODIAZEPINES SCREEN URINE NEGATIVE (NEGATIVE); PHENCYCLIDINE URINE SCREEN PRESUMTIVE POSITIVE (NEGATIVE)
[2021-02-21 23:25] LABS: *COCAINE SCREEN URINE NEGATIVE (NEGATIVE); METHADONE URINE SCREEN NEGATIVE (NEGATIVE); OPIATES URINE SCREEN PRESUMTIVE POSITIVE (NEGATIVE)
[2021-02-21 23:27] LABS: CANNABINOID URINE SCREEN NEGATIVE (NEGATIVE)
[2021-02-22] VITALS (7 sets, daily range): BP systolic 105–155; BP diastolic 76–94
[2021-02-22 01:16] LABS: BG CARBOXYHEMOGLOBIN 4.4 % (0.5-1.5); BG FRACTION INSPIRED OXYGEN 21; BG HCO3 ACT 31.5 mmol/L (22.0-26.0); BG OXYGEN SATURATION 88.5 % (92.0-98.5); BG OXYHEMOGLOBIN 84.6 % (94.0-97.0); BG PCO2 54.3 mmHg (35.0-45.0); BG PH 7.381 (7.350-7.450); BG PO2 53.2 mmHg (75.0-100.0); BG SAMPLE SITE RIGHT RADIAL; BG TOTAL HEMOGLOBIN 13.5 g/dL (12.0-18.0); BG VENT MODE ROOM AIR
[2021-02-22] MEDS ORDERED: IPRATROPIUM/ALBUTEROL 0.5-3(2.5)MG/3ML NEB NEB PRN (07:00)
[2021-02-22] MEDS ORDERED: MORPHINE SULFATE 2 MG/ML CPJ (NOT FOR IM USE) IV PRN (07:00)
[2021-02-22] MEDS ORDERED: LORAZEPAM 2MG/ML CPJ IV PRN (07:00)
[2021-02-22] MEDS ORDERED: HYDROCODONE/ACETAMINOPHEN 5/325MG TABLET PO PRN ×2 (07:00→15:00)
[2021-02-22] MEDS ORDERED: ONDANSETRON HCL 4MG/2ML INJ IV PRN (08:30)
[2021-02-22] MEDS: ENOXAPARIN 40MG/0.4ML SYR SUBCUT SCH ×2 (08:51→20:20)
[2021-02-22 09:06] LABS: BG BASE EXCESS 3.9 mmol/L (-2.0-2.0); BG CARBOXYHEMOGLOBIN 1.5 % (0.5-1.5); BG DEOXYHEMOGLOBIN 9.6 % (0.0-5.0); BG FRACTION INSPIRED OXYGEN 21; BG HCO3 ACT 31.3 mmol/L (22.0-26.0); BG METHEMOGLOBIN 0.3 % (0.0-1.5); BG OXYGEN SATURATION 90.2 % (92.0-98.5); BG OXYHEMOGLOBIN 88.6 % (94.0-97.0); BG PCO2 60.3 mmHg (35.0-45.0); BG PH 7.333 (7.350-7.450); BG PO2 57.4 mmHg (75.0-100.0); BG SAMPLE SITE RIGHT RADIAL; BG TOTAL HEMOGLOBIN 12.8 g/dL (12.0-18.0); BG VENT MODE ROOM AIR
[2021-02-22] MEDS ORDERED: LIDOCAINE HCL/PF 1% 2ML VIAL ONE (09:30)
[2021-02-22] MEDS ORDERED: LIDOCAINE HCL 1% 20ML VIAL (Pyxis) INJ INFIL NR (12:03)
[2021-02-22] MEDS: ASPIRIN 81MG EC TABLET PO SCH (14:36)
[2021-02-22] MEDS: CLOPIDOGREL 75MG TABLET PO SCH (14:36)
[2021-02-22] MEDS: ATORVASTATIN CALCIUM 10MG TABLET PO SCH (14:36)
[2021-02-22] MEDS: HYDRALAZINE HCL 50MG TABLET PO SCH ×2 (14:37→22:23)
[2021-02-22] MEDS: HYDROCODONE/ACETAMINOPHEN 10/325MG TABLET PO PRN ×2 (14:38→18:31)
[2021-02-22 16:45] LABS: CREATINE KINASE 63 IU/L (39-308)
[2021-02-22 16:46] LABS: CREATINE KINASE MB FRACTION 1.2 ng/mL (0.5-3.6)
[2021-02-22] MEDS ORDERED: FUROSEMIDE 40MG TABLET PO SCH (17:00)
[2021-02-22] MEDS ORDERED: BUMETANIDE 1MG TABLET PO SCH (17:00)
[2021-02-22] MEDS: BUMETANIDE 1MG TABLET PO SCH (17:42)
[2021-02-22] MEDS: CARVEDILOL 6.25 MG TABLET PO SCH (20:20)
[2021-02-22] MEDS: LISINOPRIL 20MG TABLET PO SCH (20:20)
[2021-02-22 23:14] LABS: CREATINE KINASE 52 IU/L (39-308)
[2021-02-22 23:15] LABS: CREATINE KINASE MB FRACTION 1.5 ng/mL (0.5-3.6)
[2021-02-23] VITALS (10 sets, daily range): BP systolic 120–151; BP diastolic 68–109
[2021-02-23] MEDS: HYDROCODONE/ACETAMINOPHEN 10/325MG TABLET PO PRN ×5 (03:57→22:05)
[2021-02-23] MEDS: HYDRALAZINE HCL 50MG TABLET PO SCH ×3 (05:26→22:05)
[2021-02-23 05:35] LABS: BASOPHILS % 0.5 % (0.0-2.0); EOSINOPHILS % 1.7 % (0.0-5.0); HEMATOCRIT. 37.3 % (42.0-52.0); HEMOGLOBIN. 11.9 g/dL (14.0-18.0); LYMPHOCYTES % 10.5 % (20.0-50.0); MEAN CORPUSCULAR VOLUME 87.4 fL (80.0-94.0); MEAN PLATELET VOLUME 7.2 fl (7.4-10.4); MONOCYTES % 11.4 % (2.0-8.0); NEUTROPHILS % 75.9 % (40.0-76.0); PLATELET 257 x1000/uL (130-400); RED BLOOD CELL COUNT 4.26 mill/uL (4.7-6.1); RED CELL DISTRIBUTION WIDTH 16.7 % (11.6-14.6)
[2021-02-23 05:44] LABS: CHLORIDE 106 mEq/L (98-107)
[2021-02-23] MEDS: LISINOPRIL 20MG TABLET PO SCH ×2 (08:33→22:05)
[2021-02-23] MEDS: BUMETANIDE 1MG TABLET PO SCH ×2 (08:33→17:19)
[2021-02-23] MEDS: ASPIRIN 81MG EC TABLET PO SCH (08:33)
[2021-02-23] MEDS: ENOXAPARIN 40MG/0.4ML SYR SUBCUT SCH ×2 (08:33→22:06)
[2021-02-23] MEDS: CLOPIDOGREL 75MG TABLET PO SCH (08:33)
[2021-02-23] MEDS: ATORVASTATIN CALCIUM 10MG TABLET PO SCH (08:33)
[2021-02-23] MEDS: CARVEDILOL 6.25 MG TABLET PO SCH ×2 (08:33→22:05)
[2021-02-23] MEDS: KETOROLAC 15MG/ML VIAL IV PRN (10:49)
[2021-02-24] VITALS: BP 144/75
[2021-02-24 04:00] VITALS: BP 140/80
[2021-02-24] MEDS: HYDRALAZINE HCL 50MG TABLET PO SCH ×2 (05:09→15:08)
[2021-02-24] MEDS: HYDROCODONE/ACETAMINOPHEN 10/325MG TABLET PO PRN ×3 (05:09→20:18)
[2021-02-24 08:00] VITALS: BP 130/70
[2021-02-24] MEDS: ATORVASTATIN CALCIUM 10MG TABLET PO SCH (08:52)
[2021-02-24] MEDS: CLOPIDOGREL 75MG TABLET PO SCH (08:52)
[2021-02-24] MEDS: BUMETANIDE 1MG TABLET PO SCH ×2 (08:52→18:08)
[2021-02-24] MEDS: CARVEDILOL 6.25 MG TABLET PO SCH ×2 (08:52→20:11)
[2021-02-24] MEDS: ASPIRIN 81MG EC TABLET PO SCH (08:52)
[2021-02-24] MEDS: ENOXAPARIN 40MG/0.4ML SYR SUBCUT SCH ×2 (08:53→20:11)
[2021-02-24] MEDS: LISINOPRIL 20MG TABLET PO SCH ×2 (08:53→20:11)
[2021-02-24] MEDS: ACETAMINOPHEN 650MG/20.3ML UDC GT PRN (08:53)
[2021-02-24] MEDS ORDERED: ATOR10TA PO (09:08)
[2021-02-24] MEDS ORDERED: COR6 PO (09:08)
[2021-02-24] MEDS ORDERED: HYDR-4135 PO (09:08)
[2021-02-24] MEDS ORDERED: POTA20TA82 MT (09:08)
[2021-02-24] MEDS ORDERED: ASPI-1497 PO (09:08)
[2021-02-24] MEDS ORDERED: BUME1TAB9 MT (09:08)
[2021-02-24] MEDS ORDERED: CLOP-31 PO (09:08)
[2021-02-24] MEDS ORDERED: LISI20TA31 PO (09:08)
[2021-02-24] MEDS ORDERED: HYDR-4009 MT (09:08)
[2021-02-24] MEDS ORDERED: FLUT1DIS3 INH (09:08)
[2021-02-24] MEDS ORDERED: ALBU18HF2 IH (09:08)
[2021-02-24 12:00] VITALS: BP 102/69
[2021-02-24 16:00] VITALS: BP 163/94
[2021-02-24 20:00] VITALS: BP 142/86
[2021-02-25] VITALS: BP 160/99
[2021-02-25] MEDS: HYDRALAZINE HCL 50MG TABLET PO SCH ×4 (01:36→21:57)
[2021-02-25 04:00] VITALS: BP 138/76
[2021-02-25 08:00] VITALS: BP_SYST 148
[2021-02-25] MEDS: ATORVASTATIN CALCIUM 10MG TABLET PO SCH (08:40)
[2021-02-25] MEDS: BUMETANIDE 1MG TABLET PO SCH ×2 (08:40→17:29)
[2021-02-25] MEDS: CARVEDILOL 6.25 MG TABLET PO SCH ×2 (08:40→21:57)
[2021-02-25] MEDS: CLOPIDOGREL 75MG TABLET PO SCH (08:40)
[2021-02-25] MEDS: ASPIRIN 81MG EC TABLET PO SCH (08:40)
[2021-02-25] MEDS: LISINOPRIL 20MG TABLET PO SCH ×2 (08:40→21:57)
[2021-02-25] MEDS: HYDROCODONE/ACETAMINOPHEN 10/325MG TABLET PO PRN ×3 (08:41→19:05)
[2021-02-25] MEDS: ENOXAPARIN 40MG/0.4ML SYR SUBCUT SCH ×2 (08:42→21:57)
[2021-02-25 12:00] VITALS: BP 124/66
[2021-02-25 16:00] VITALS: BP 148/82
[2021-02-25 20:00] VITALS: BP 149/82
[2021-02-25] MEDS: ACETAMINOPHEN 650MG/20.3ML UDC GT PRN (22:40)
[2021-02-26] VITALS: BP 132/70
[2021-02-26 04:00] VITALS: BP 148/93
[2021-02-26] MEDS: HYDRALAZINE HCL 50MG TABLET PO SCH ×3 (05:47→22:06)
[2021-02-26 08:00] VITALS: BP 130/71
[2021-02-26] MEDS: LISINOPRIL 20MG TABLET PO SCH ×2 (08:47→22:06)
[2021-02-26] MEDS: BUMETANIDE 1MG TABLET PO SCH ×2 (08:47→17:03)
[2021-02-26] MEDS: ATORVASTATIN CALCIUM 10MG TABLET PO SCH (08:47)
[2021-02-26] MEDS: CLOPIDOGREL 75MG TABLET PO SCH (08:47)
[2021-02-26] MEDS: ASPIRIN 81MG EC TABLET PO SCH (08:47)
[2021-02-26] MEDS: ENOXAPARIN 40MG/0.4ML SYR SUBCUT SCH ×2 (08:48→22:06)
[2021-02-26] MEDS: CARVEDILOL 6.25 MG TABLET PO SCH ×2 (08:48→22:06)
[2021-02-26] MEDS: KETOROLAC 15MG/ML VIAL IV PRN ×2 (09:39→22:07)
[2021-02-26 12:00] VITALS: BP 112/74
[2021-02-26] MEDS: HYDROCODONE/ACETAMINOPHEN 10/325MG TABLET PO PRN ×2 (14:44→22:13)
[2021-02-26 16:00] VITALS: BP 140/57
[2021-02-26 20:00] VITALS: BP 128/73
[2021-02-27] VITALS: BP 149/73
[2021-02-27] MEDS: KETOROLAC 15MG/ML VIAL IV PRN ×2 (01:49→14:41)
[2021-02-27 04:00] VITALS: BP 127/71
[2021-02-27] MEDS: HYDRALAZINE HCL 50MG TABLET PO SCH ×3 (06:07→23:16)
[2021-02-27 08:00] VITALS: BP 132/69
[2021-02-27] MEDS: CLOPIDOGREL 75MG TABLET PO SCH (09:03)
[2021-02-27] MEDS: ATORVASTATIN CALCIUM 10MG TABLET PO SCH (09:03)
[2021-02-27] MEDS: LISINOPRIL 20MG TABLET PO SCH ×2 (09:03→23:16)
[2021-02-27] MEDS: ASPIRIN 81MG EC TABLET PO SCH (09:03)
[2021-02-27] MEDS: CARVEDILOL 6.25 MG TABLET PO SCH ×2 (09:04→23:16)
[2021-02-27] MEDS: BUMETANIDE 1MG TABLET PO SCH ×2 (09:04→18:14)
[2021-02-27] MEDS: ENOXAPARIN 40MG/0.4ML SYR SUBCUT SCH ×2 (09:04→23:16)
[2021-02-27] MEDS: HYDROCODONE/ACETAMINOPHEN 10/325MG TABLET PO PRN (11:34)
[2021-02-27 12:00] VITALS: BP 128/63
[2021-02-27 16:00] VITALS: BP 124/79
[2021-02-27 20:00] VITALS: BP 132/79
[2021-02-28] VITALS: BP 134/73
[2021-02-28 04:00] VITALS: BP 127/71
[2021-02-28] MEDS: HYDRALAZINE HCL 50MG TABLET PO SCH ×3 (05:58→22:18)
[2021-02-28 08:00] VITALS: BP 106/66
[2021-02-28] MEDS: ASPIRIN 81MG EC TABLET PO SCH (08:54)
[2021-02-28] MEDS: CLOPIDOGREL 75MG TABLET PO SCH (08:54)
[2021-02-28] MEDS: CARVEDILOL 6.25 MG TABLET PO SCH ×2 (08:55→23:51)
[2021-02-28] MEDS: LISINOPRIL 20MG TABLET PO SCH ×2 (08:55→22:18)
[2021-02-28] MEDS: ATORVASTATIN CALCIUM 10MG TABLET PO SCH (08:55)
[2021-02-28] MEDS: ENOXAPARIN 40MG/0.4ML SYR SUBCUT SCH ×2 (08:55→22:18)
[2021-02-28] MEDS: BUMETANIDE 1MG TABLET PO SCH ×2 (08:55→18:37)
[2021-02-28] MEDS: HYDROCODONE/ACETAMINOPHEN 10/325MG TABLET PO PRN ×2 (10:52→22:19)
[2021-02-28] MEDS ORDERED: LIDOCAINE HCL/PF 1% 2ML VIAL ONE (14:10)
[2021-02-28 14:57] LABS: BG BASE EXCESS 14.5 mmol/L (-2.0-2.0); BG CARBOXYHEMOGLOBIN 0.9 % (0.5-1.5); BG HCO3 ACT 41.2 mmol/L (22.0-26.0); BG OXYGEN SATURATION 91.9 % (92.0-98.5); BG OXYHEMOGLOBIN 91.1 % (94.0-97.0); BG PCO2 60.3 mmHg (35.0-45.0); BG PH 7.452 (7.350-7.450); BG PO2 57.1 mmHg (75.0-100.0); BG SAMPLE SITE RIGHT RADIAL; BG TOTAL HEMOGLOBIN 13.1 g/dL (12.0-18.0)
[2021-02-28 16:00] VITALS: BP 116/76
[2021-02-28 16:40] VITALS: BP 116/76
[2021-02-28] MEDS ORDERED: LACTULOSE 20G/30ML UDC PO NR (17:04)
[2021-02-28 20:00] VITALS: BP 139/85
[2021-03-01] VITALS: BP 132/78
[2021-03-01] MEDS: ZOLPIDEM TARTRATE 5MG TABLET PO PRN (00:20)
[2021-03-01 04:00] VITALS: BP 129/65
[2021-03-01] MEDS: HYDRALAZINE HCL 50MG TABLET PO SCH ×3 (06:51→21:46)
[2021-03-01 08:00] VITALS: BP 94/60
[2021-03-01] MEDS: LISINOPRIL 20MG TABLET PO SCH ×2 (09:00→21:46)
[2021-03-01] MEDS: CARVEDILOL 6.25 MG TABLET PO SCH ×2 (09:00→21:45)
[2021-03-01 09:14] LABS: BASOPHILS % 0.4 % (0.0-2.0); EOSINOPHILS % 1.2 % (0.0-5.0); HEMATOCRIT. 37.6 % (42.0-52.0); HEMOGLOBIN. 12.2 g/dL (14.0-18.0); LYMPHOCYTES % 10.8 % (20.0-50.0); MEAN CORPUSCULAR HEMOGLOBIN 27.8 pg (28.0-32.0); MEAN CORPUSCULAR VOLUME 85.6 fL (80.0-94.0); MEAN PLATELET VOLUME 7.8 fl (7.4-10.4); MONOCYTES % 9.3 % (2.0-8.0); NEUTROPHILS % 78.3 % (40.0-76.0); PLATELET 287 x1000/uL (130-400); RED BLOOD CELL COUNT 4.39 mill/uL (4.7-6.1); RED CELL DISTRIBUTION WIDTH 16.2 % (11.6-14.6)
[2021-03-01 09:18] LABS: CHLORIDE 101 mEq/L (98-107)
[2021-03-01] MEDS: ENOXAPARIN 40MG/0.4ML SYR SUBCUT SCH ×2 (10:09→21:45)
[2021-03-01] MEDS: ATORVASTATIN CALCIUM 10MG TABLET PO SCH (10:10)
[2021-03-01] MEDS: BUMETANIDE 1MG TABLET PO SCH ×2 (10:10→18:39)
[2021-03-01] MEDS: HYDROCODONE/ACETAMINOPHEN 10/325MG TABLET PO PRN ×3 (10:10→21:46)
[2021-03-01] MEDS: CLOPIDOGREL 75MG TABLET PO SCH (10:11)
[2021-03-01] MEDS: ASPIRIN 81MG EC TABLET PO SCH (10:11)
[2021-03-01 12:00] VITALS: BP 114/76
[2021-03-01 16:00] VITALS: BP 110/75
[2021-03-01 20:00] VITALS: BP 160/73
[2021-03-02] VITALS: BP 104/61
[2021-03-02] MEDS: HYDROCODONE/ACETAMINOPHEN 10/325MG TABLET PO PRN ×4 (02:22→20:47)
[2021-03-02 04:00] VITALS: BP 129/69
[2021-03-02] MEDS: HYDRALAZINE HCL 50MG TABLET PO SCH ×3 (06:54→21:11)
[2021-03-02] MEDS: BUMETANIDE 1MG TABLET PO SCH ×2 (09:19→17:00)
[2021-03-02] MEDS: CLOPIDOGREL 75MG TABLET PO SCH (09:19)
[2021-03-02] MEDS: CARVEDILOL 6.25 MG TABLET PO SCH ×2 (09:19→20:54)
[2021-03-02] MEDS: LISINOPRIL 20MG TABLET PO SCH ×2 (09:19→20:47)
[2021-03-02] MEDS: ASPIRIN 81MG EC TABLET PO SCH (09:19)
[2021-03-02] MEDS: ATORVASTATIN CALCIUM 10MG TABLET PO SCH (09:19)
[2021-03-02] MEDS: ENOXAPARIN 40MG/0.4ML SYR SUBCUT SCH ×2 (09:20→20:54)
[2021-03-02 16:00] VITALS: BP 118/68
[2021-03-02 20:00] VITALS: BP 116/64
[2021-03-02] MEDS: ZOLPIDEM TARTRATE 5MG TABLET PO PRN (20:47)
[2021-03-03] VITALS: BP 131/60
[2021-03-03] MEDS: HYDROCODONE/ACETAMINOPHEN 10/325MG TABLET PO PRN ×4 (02:40→18:13)
[2021-03-03 04:00] VITALS: BP 110/60
[2021-03-03] MEDS: HYDRALAZINE HCL 50MG TABLET PO SCH ×3 (06:00→22:00)
[2021-03-03 08:00] VITALS: BP 103/54
[2021-03-03] MEDS: LISINOPRIL 20MG TABLET PO SCH ×2 (08:52→21:00)
[2021-03-03] MEDS: CLOPIDOGREL 75MG TABLET PO SCH (08:52)
[2021-03-03] MEDS: ASPIRIN 81MG EC TABLET PO SCH (08:52)
[2021-03-03] MEDS: BUMETANIDE 1MG TABLET PO SCH ×2 (08:52→18:13)
[2021-03-03] MEDS: ATORVASTATIN CALCIUM 10MG TABLET PO SCH (08:52)
[2021-03-03] MEDS: ENOXAPARIN 40MG/0.4ML SYR SUBCUT SCH ×2 (08:53→22:23)
[2021-03-03] MEDS: CARVEDILOL 6.25 MG TABLET PO SCH ×2 (08:53→21:00)
[2021-03-03 12:00] VITALS: BP 99/54
[2021-03-03 16:00] VITALS: BP 111/59
[2021-03-03 20:00] VITALS: BP 104/50
[2021-03-04] VITALS: BP 94/39
[2021-03-04] MEDS: HYDROCODONE/ACETAMINOPHEN 10/325MG TABLET PO PRN ×4 (02:46→18:48)
[2021-03-04 04:00] VITALS: BP 110/74
[2021-03-04] MEDS: ZOLPIDEM TARTRATE 5MG TABLET PO PRN ×2 (04:14→22:52)
[2021-03-04] MEDS: HYDRALAZINE HCL 50MG TABLET PO SCH ×3 (06:43→22:25)
[2021-03-04 08:00] VITALS: BP 103/66
[2021-03-04] MEDS: CLOPIDOGREL 75MG TABLET PO SCH (09:00)
[2021-03-04] MEDS: ATORVASTATIN CALCIUM 10MG TABLET PO SCH (09:01)
[2021-03-04] MEDS: ASPIRIN 81MG EC TABLET PO SCH (09:01)
[2021-03-04] MEDS: ENOXAPARIN 40MG/0.4ML SYR SUBCUT SCH ×2 (09:02→22:26)
[2021-03-04] MEDS: BUMETANIDE 1MG TABLET PO SCH ×2 (09:02→17:16)
[2021-03-04] MEDS: LISINOPRIL 20MG TABLET PO SCH ×2 (09:02→22:25)
[2021-03-04] MEDS: CARVEDILOL 6.25 MG TABLET PO SCH ×2 (09:02→22:24)
[2021-03-04 12:00] VITALS: BP 108/57
[2021-03-04 16:00] VITALS: BP 110/62
[2021-03-04 20:00] VITALS: BP 111/57
[2021-03-04] MEDS ORDERED: HYDROCODONE/ACETAMINOPHEN 10/325MG TABLET PO PRN (22:15)
[2021-03-05] VITALS: BP 98/54
[2021-03-05] MEDS: ACETAMINOPHEN 650MG/20.3ML UDC GT PRN (02:54)
[2021-03-05] MEDS: ZOLPIDEM TARTRATE 5MG TABLET PO PRN ×2 (03:00→20:46)
[2021-03-05 04:00] VITALS: BP 105/62
[2021-03-05] MEDS: HYDRALAZINE HCL 50MG TABLET PO SCH ×3 (06:47→22:00)
[2021-03-05 08:00] VITALS: BP 109/60
[2021-03-05] MEDS: CARVEDILOL 6.25 MG TABLET PO SCH ×2 (09:00→20:40)
[2021-03-05] MEDS: LISINOPRIL 20MG TABLET PO SCH ×2 (09:00→20:35)
[2021-03-05] MEDS: ENOXAPARIN 40MG/0.4ML SYR SUBCUT SCH ×2 (09:01→20:36)
[2021-03-05] MEDS: ATORVASTATIN CALCIUM 10MG TABLET PO SCH (09:01)
[2021-03-05] MEDS: CLOPIDOGREL 75MG TABLET PO SCH (09:01)
[2021-03-05] MEDS: BUMETANIDE 1MG TABLET PO SCH ×2 (09:01→18:09)
[2021-03-05] MEDS: ASPIRIN 81MG EC TABLET PO SCH (09:01)
[2021-03-05 12:00] VITALS: BP 110/59
[2021-03-05 16:00] VITALS: BP 115/55
[2021-03-05] MEDS: HYDROCODONE/ACETAMINOPHEN 10/325MG TABLET PO PRN ×2 (18:10→22:26)
[2021-03-05 20:00] VITALS: BP 109/69
[2021-03-06] VITALS: BP 103/68
[2021-03-06 04:00] VITALS: BP 112/70
[2021-03-06] MEDS: HYDROCODONE/ACETAMINOPHEN 10/325MG TABLET PO PRN ×2 (04:20→21:14)
[2021-03-06] MEDS: HYDRALAZINE HCL 50MG TABLET PO SCH ×3 (06:03→21:12)
[2021-03-06 08:00] VITALS: BP 99/65
[2021-03-06] MEDS: CARVEDILOL 6.25 MG TABLET PO SCH ×2 (09:00→21:00)
[2021-03-06] MEDS: LISINOPRIL 20MG TABLET PO SCH ×2 (09:00→21:00)
[2021-03-06] MEDS: ATORVASTATIN CALCIUM 10MG TABLET PO SCH (09:27)
[2021-03-06] MEDS: BUMETANIDE 1MG TABLET PO SCH ×2 (09:27→17:31)
[2021-03-06] MEDS: CLOPIDOGREL 75MG TABLET PO SCH (09:27)
[2021-03-06] MEDS: ASPIRIN 81MG EC TABLET PO SCH (09:27)
[2021-03-06] MEDS: ENOXAPARIN 40MG/0.4ML SYR SUBCUT SCH ×2 (09:28→21:12)
[2021-03-06] MEDS ORDERED: ZOLPIDEM TARTRATE 5MG TABLET PO PRN (11:30)
[2021-03-06 11:59] VITALS: BP 105/55
[2021-03-06 16:00] VITALS: BP 103/67
[2021-03-06 20:00] VITALS: BP 104/59
[2021-03-07] VITALS: BP 108/60
[2021-03-07 04:00] VITALS: BP 119/69
[2021-03-07 07:26] LABS: CHLORIDE 101 mEq/L (98-107)
[2021-03-07 07:45] LABS: BASOPHILS % 0.5 % (0.0-2.0); EOSINOPHILS % 1.6 % (0.0-5.0); HEMATOCRIT. 37.1 % (42.0-52.0); HEMOGLOBIN. 12.2 g/dL (14.0-18.0); LYMPHOCYTES % 15.9 % (20.0-50.0); MEAN CORPUSCULAR HEMOGLOBIN 28.8 pg (28.0-32.0); MEAN CORPUSCULAR VOLUME 87.2 fL (80.0-94.0); MEAN PLATELET VOLUME 8.5 fl (7.4-10.4); MONOCYTES % 9.7 % (2.0-8.0); NEUTROPHILS % 72.3 % (40.0-76.0); PLATELET 314 x1000/uL (130-400); RED BLOOD CELL COUNT 4.25 mill/uL (4.7-6.1); RED CELL DISTRIBUTION WIDTH 16.4 % (11.6-14.6)
[2021-03-07 08:00] VITALS: BP 103/68
[2021-03-07] MEDS: ASPIRIN 81MG EC TABLET PO SCH (10:01)
[2021-03-07] MEDS: ATORVASTATIN CALCIUM 10MG TABLET PO SCH (10:01)
[2021-03-07] MEDS: HYDROCODONE/ACETAMINOPHEN 10/325MG TABLET PO PRN ×3 (10:01→22:20)
[2021-03-07] MEDS: LISINOPRIL 20MG TABLET PO SCH ×2 (10:02→22:15)
[2021-03-07] MEDS: BUMETANIDE 1MG TABLET PO SCH ×2 (10:02→17:00)
[2021-03-07] MEDS: CARVEDILOL 6.25 MG TABLET PO SCH ×2 (10:02→22:14)
[2021-03-07] MEDS: ENOXAPARIN 40MG/0.4ML SYR SUBCUT SCH ×2 (10:03→22:16)
[2021-03-07] MEDS: CLOPIDOGREL 75MG TABLET PO SCH (10:05)
[2021-03-07] MEDS: HYDRALAZINE HCL 50MG TABLET PO SCH ×2 (14:00→22:14)
[2021-03-07 15:12] LABS: BG BASE EXCESS 7.6 mmol/L (-2.0-2.0); BG CARBOXYHEMOGLOBIN 0.5 % (0.5-1.5); BG DEOXYHEMOGLOBIN 4.9 % (0.0-5.0); BG FRACTION INSPIRED OXYGEN 21; BG HCO3 ACT 34.3 mmol/L (22.0-26.0); BG METHEMOGLOBIN 0.3 % (0.0-1.5); BG OXYGEN SATURATION 95.1 % (92.0-98.5); BG OXYHEMOGLOBIN 94.3 % (94.0-97.0); BG PCO2 57.6 mmHg (35.0-45.0); BG PH 7.393 (7.350-7.450); BG PO2 72.4 mmHg (75.0-100.0); BG SAMPLE SITE RIGHT RADIAL; BG TOTAL HEMOGLOBIN 13.3 g/dL (12.0-18.0); BG VENT MODE ROOM AIR
[2021-03-07 20:00] VITALS: BP 112/57
[2021-03-08] VITALS: BP 94/54
[2021-03-08 04:00] VITALS: BP 97/56
[2021-03-08] MEDS: HYDRALAZINE HCL 50MG TABLET PO SCH ×2 (05:01→16:57)
[2021-03-08 08:00] VITALS: BP_SYST 111; BP_SYST 117; BP_DIAS 67
[2021-03-08] MEDS: CARVEDILOL 6.25 MG TABLET PO SCH (08:39)
[2021-03-08] MEDS: BUMETANIDE 1MG TABLET PO SCH ×2 (08:39→16:57)
[2021-03-08] MEDS: CLOPIDOGREL 75MG TABLET PO SCH (08:39)
[2021-03-08] MEDS: HYDROCODONE/ACETAMINOPHEN 10/325MG TABLET PO PRN (08:39)
[2021-03-08] MEDS: LISINOPRIL 20MG TABLET PO SCH (08:39)
[2021-03-08] MEDS: ASPIRIN 81MG EC TABLET PO SCH (08:39)
[2021-03-08] MEDS: ENOXAPARIN 40MG/0.4ML SYR SUBCUT SCH (08:40)
[2021-03-08] MEDS: ATORVASTATIN CALCIUM 10MG TABLET PO SCH (08:40)
[2021-03-08 12:00] VITALS: BP 103/54
[2021-03-08 16:00] VITALS: BP 111/73
[2021-03-08 19:59] VITALS: BP 111/73
== END 2021-03-08 19:50 | DRG 52 ==
LOC: ER 21:22 → 3WST 02-22 01:52 → ENRESERV 02-22 04:20 → 6EST 02-23 15:19
PROVIDERS: ADMIT Internal Medicine Nephrology; ATTEND Internal Medicine Nephrology
PROC: 0JBP0ZZ Excision of Left Lower Leg Subcutaneous Tissue and Fascia, Open Approach (ICD-10-PCS; principal; 2021-02-22)
PROC: 5A09357 Assistance with Respiratory Ventilation, Less than 24 Consecutive Hours, Continuous Positive Airway Pressure (ICD-10-PCS; 2021-02-22)
PROC: 5A09557 Assistance with Respiratory Ventilation, Greater than 96 Consecutive Hours, Continuous Positive Airway Pressure (ICD-10-PCS; 2021-02-23)
PROC: 5A09357 Assistance with Respiratory Ventilation, Less than 24 Consecutive Hours, Continuous Positive Airway Pressure (ICD-10-PCS; 2021-02-28)
PROC: 5A09457 Assistance with Respiratory Ventilation, 24-96 Consecutive Hours, Continuous Positive Airway Pressure (ICD-10-PCS; 2021-03-01)
PROC: 5A09357 Assistance with Respiratory Ventilation, Less than 24 Consecutive Hours, Continuous Positive Airway Pressure (ICD-10-PCS; 2021-03-03)
PROC: 5A09457 Assistance with Respiratory Ventilation, 24-96 Consecutive Hours, Continuous Positive Airway Pressure (ICD-10-PCS; 2021-03-04)
PROC: 5A09357 Assistance with Respiratory Ventilation, Less than 24 Consecutive Hours, Continuous Positive Airway Pressure (ICD-10-PCS; 2021-03-07)
PROC: 5A09357 Assistance with Respiratory Ventilation, Less than 24 Consecutive Hours, Continuous Positive Airway Pressure (ICD-10-PCS; 2021-03-08)
DX: G92 Toxic encephalopathy (principal); J96.01 Acute respiratory failure with hypoxia; I50.43 Acute on chronic combined systolic (congestive) and diastolic (congestive) heart failure; J96.02 Acute respiratory failure with hypercapnia; J84.9 Interstitial pulmonary disease, unspecified; E44.0 Moderate protein-calorie malnutrition; S42.302A Unspecified fracture of shaft of humerus, left arm, initial encounter for closed fracture; I42.9 Cardiomyopathy, unspecified; E66.2 Morbid (severe) obesity with alveolar hypoventilation; F16.90 Hallucinogen use, unspecified, uncomplicated; J44.9 Chronic obstructive pulmonary disease, unspecified; I11.0 Hypertensive heart disease with heart failure; I87.2 Venous insufficiency (chronic) (peripheral); F17.210 Nicotine dependence, cigarettes, uncomplicated; Z60.2 Problems related to living alone; I73.9 Peripheral vascular disease, unspecified; R74.01 Elevation of levels of liver transaminase levels; X58.XXXD Exposure to other specified factors, subsequent encounter; R26.89 Other abnormalities of gait and mobility; Z79.899 Other long term (current) drug therapy; Z79.82 Long term (current) use of aspirin; Z71.51 Drug abuse counseling and surveillance of drug abuser; Z71.3 Dietary counseling and surveillance; Z71.6 Tobacco abuse counseling; Z68.43 Body mass index [BMI] 50.0-59.9, adult; S81.812D Laceration without foreign body, left lower leg, subsequent encounter; Z20.822 Contact with and (suspected) exposure to COVID-19
CPT/HCPCS: 36415; 36600; 71045; 80048; 80053; 80305; 80307; 80320; 80329; 81003; 82140; 82375; 82550; 82553; 82805; 83735; 83880; 84484; 85025; 87426; 93005; 93306; 94660; 97116; 97162; 97530; 99285; J1650; J1885; J2270; J3490; G0480